=== PATIENT | female | born 1970 ===

== ENCOUNTER 2021-11-25 17:25 | Inpatient (IN) | payer OTHER ==
[~2021-11-25] VITALS: Ht 152.4 cm; Wt 65.8 kg
[2021-12-01] MEDS ORDERED: SIMVAST PO (14:38)
[2021-12-01] MEDS ORDERED: GLUMETZA500 MG PO (14:38)
[2021-12-01] MEDS ORDERED: VITAMIN D3 PO (14:39)
[2021-12-01] MEDS ORDERED: HORIZANT300 MG PO (14:39)
[2021-12-06] MEDS ORDERED: VITAMIN D310 MC4 (08:56)
[2021-12-06] MEDS ORDERED: SIMVASTATIN10 MG (08:56)
== END 2021-12-09 22:30 | disposition home or self-care (01) | DRG 330 ==
LOC: O/R 12-06 05:45 → SURG 12-06 06:15 → SURH 12-06 11:03 → SURG 12-06 11:45
PROVIDERS: ADMIT Colon & Rectal Surgery; ATTEND Colon & Rectal Surgery
PROC: 0DBP4ZZ Excision of Rectum, Percutaneous Endoscopic Approach (ICD-10-PCS; 2021-12-06)
PROC: 0DJD8ZZ Inspection of Lower Intestinal Tract, Via Natural or Artificial Opening Endoscopic (ICD-10-PCS; 2021-12-06)
PROC: 0DTN4ZZ Resection of Sigmoid Colon, Percutaneous Endoscopic Approach (ICD-10-PCS; principal; 2021-12-06 06:15)
DX: K57.32 Diverticulitis of large intestine without perforation or abscess without bleeding (principal); K92.1 Melena; Z20.822 Contact with and (suspected) exposure to COVID-19; E11.9 Type 2 diabetes mellitus without complications; E78.5 Hyperlipidemia, unspecified; I10 Essential (primary) hypertension

== ENCOUNTER 2022-06-07 05:35 | Day surgery (SDC) | payer OTHER ==
[~2022-06-07 05:35] MED LIST: GLUMETZA500 MG PO; HORIZANT300 MG PO; SIMVAST PO; SIMVASTATIN10 MG; VITAMIN D3 PO; VITAMIN D310 MC4
[2022-06-07] MEDS ORDERED: PERCOCET 5-3251 EACH PO (11:13)
== END 2022-06-07 13:10 | disposition home or self-care (01) ==
LOC: CIR.AMB 05:35
PROVIDERS: ATTEND Surgery
DX: C73 Malignant neoplasm of thyroid gland (principal); R59.0 Localized enlarged lymph nodes; Z88.6 Allergy status to analgesic agent; Z20.822 Contact with and (suspected) exposure to COVID-19; I10 Essential (primary) hypertension; E78.00 Pure hypercholesterolemia, unspecified; E11.9 Type 2 diabetes mellitus without complications; Z79.84 Long term (current) use of oral hypoglycemic drugs